=== PATIENT | female | born 1935 | race Hispanic/Latino ===

== ENCOUNTER → 2016-09-22 | Outpatient (CLI) | payer OTHER ==
[~2016-09-22] VITALS: Ht 149.9 cm; Wt 77.7 kg
[~2016-09-22] MED LIST: ALPRAZOLAM0.5 MG PO; ALPRAZOLAM1 MG PO; AMLODIPINE BES2.5 MG PO; AMLODIPINE BESYL5 MG PO; AMOXICILLIN500 MG PO; ARICEPT10 MG PO; ARICEPT5 MG PO; AVENTYL,PAMELOR10 MG PO; BUDEPRION SR100 MG PO; BUPROPION HCL100 MG PO; CARBIDOPA/LEVO1 EACH PO; CELEXA20 MG PO; CITRACAL + D PO; CITRACAL D + H1 EACH PO; CITRACAL SOFT1 EACH PO; CITRACAL W/V1 TABLE1 PO; CITRACAL200 MG PO; CLARITIN10 M3 PO; ENDOCET 5-3251 EACH PO; FENTANYL1 EAC4 TD; FORTAMET500 M1 PO; GLUCOPHAGE XR,500 MG PO; GLUCOPHAGE500 MG PO; GLUCOSA-CHOND-1 EACH PO; GLUCOSAMINE &1 EACH PO; GLUCOSAMINE PO; GLUCOSAMINE1000 MG PO; Glucophage PO; HYDROCODON-ACE1 EAC5 PO; HYDROCODON-ACE1 EAC8 PO; LANOXIN,DIGI0.125 MG PO; LIDOCAINE700 MG TD; LISINOPRIL10 MG PO; LOPRESSOR25 MG PO; LORATADINE10 M2 PO; LORTAB 7.5/51 TABLET PO; LYRICA75 MG PO; METFORMIN HCL500 M1 PO; METOCLOPRAMIDE H5 MG PO; METOCLOPRAMIDE10 MG PO; MORPHINE SULFAT15 M1 PO; MYCOSTATIN 100,60 ML PO; MYSOLINE50 MG PO; Motrin PO; Move Free Advanced T PO; NABUMETONE500 MG PO; NORTRIPTYLINE H10 MG PO; NORVASC2.5 MG PO; NORVASC5 MG PO; OMEPRAZOLE40 M1 PO; ONE A DAY VITAMIN PO; ONE DAILY FOR1 EAC1 PO; ONE-A-DAY PO; PERCOCET 7.51 TABLET PO; PRAVASTATIN; PRIMIDONE50 MG PO; PRINIVIL10 MG PO; RANITIDINE HCL150 M1 PO; RESTASIS 01 DROP/0.4 BOTH EYES; ROXICODONE5 MG PO; SINEMET 25-1001 EACH PO; TENORMIN25 MG PO; TIZANIDINE HCL2 M1 PO; TYLENOL REGULA325 MG PO; VITAMIN D-32000 UNI2 PO; VITAMIN D2000 UNIT PO; VITAMIN D31000 UNI2 PO; VITAMIN D32000 UNI1 PO; WOMENS MULTIPL1 EACH PO; Wellbutrin PO; XANAX1 MG PO; ZANAFLEX2 M1 PO; ZANAFLEX2 MG PO; Zantac PO; celeXA PO
[2016-09-22 08:22] VITALS: BP 134/63
== END | disposition home or self-care (01) ==
LOC: IVINF 09-01 15:00
DX: M81.0 Age-related osteoporosis without current pathological fracture (principal)
CPT/HCPCS: 96365; J3489

== ENCOUNTER 2016-11-18 07:30 | Day surgery (SDC) | payer OTHER ==
[~2016-11-18] VITALS: Ht 124.5 cm; Wt 77.1 kg
[~2016-11-18 07:30] MED LIST changes: +BENEFIBER152 GM PO; +PROBIOTIC1 EAC1 PO; +ZYRTEC10 M3 PO
[2016-11-18 08:05] LABS: POINT-OF-CARE METER ID UU14174212
== END 2016-11-18 09:00 | disposition home or self-care (01) ==
LOC: PAIN 07:30 → SDC 08:00 → PAIN 09:00
PROVIDERS: Anesthesiology Pain Medicine
DX: M47.26 Other spondylosis with radiculopathy, lumbar region (principal); M47.27 Other spondylosis with radiculopathy, lumbosacral region; F41.9 Anxiety disorder, unspecified; M48.06 Spinal stenosis, lumbar region; M79.1 Myalgia; M17.9 Osteoarthritis of knee, unspecified; I10 Essential (primary) hypertension; E11.9 Type 2 diabetes mellitus without complications; Z85.118 Personal history of other malignant neoplasm of bronchus and lung; R53.82 Chronic fatigue, unspecified; Z96.653 Presence of artificial knee joint, bilateral; Z79.84 Long term (current) use of oral hypoglycemic drugs; Z88.8 Allergy status to other drugs, medicaments and biological substances
CPT/HCPCS: 82948; J1030; J3010; S0020

== ENCOUNTER → 2017-01-17 | Outpatient (CLI) | payer MEDICARE, OTHER | END | disposition home or self-care (01) | LOC: CDC 08:55 | DX: D17.9 Benign lipomatous neoplasm, unspecified (principal); D17.79 Benign lipomatous neoplasm of other sites | CPT/HCPCS: 93000 ==

== ENCOUNTER 2017-01-25 07:40 | Day surgery (SDC) | payer OTHER ==
[~2017-01-25] VITALS: Ht 149.9 cm; Wt 77.6 kg
[~2017-01-25 07:40] MED LIST changes: +MOVANTIK12.5 MG PO
[2017-01-25 08:25] LABS: POINT-OF-CARE METER ID UU14174212
== END 2017-01-25 10:00 | disposition home or self-care (01) ==
LOC: PAIN 07:40 → SDC 08:00 → PAIN 10:00
PROVIDERS: Anesthesiology Pain Medicine
DX: M51.16 Intervertebral disc disorders with radiculopathy, lumbar region (principal); M47.16 Other spondylosis with myelopathy, lumbar region; M50.10 Cervical disc disorder with radiculopathy, unspecified cervical region; M62.838 Other muscle spasm; M48.02 Spinal stenosis, cervical region; M81.0 Age-related osteoporosis without current pathological fracture; I10 Essential (primary) hypertension; M79.1 Myalgia; G25.0 Essential tremor; E11.42 Type 2 diabetes mellitus with diabetic polyneuropathy; K21.9 Gastro-esophageal reflux disease without esophagitis; E78.00 Pure hypercholesterolemia, unspecified; E66.3 Overweight; Z68.35 Body mass index [BMI] 35.0-35.9, adult; E55.9 Vitamin D deficiency, unspecified; Z79.84 Long term (current) use of oral hypoglycemic drugs; Z79.891 Long term (current) use of opiate analgesic; Z79.899 Other long term (current) drug therapy
CPT/HCPCS: 82948; J1030; J3010; S0020

== ENCOUNTER → 2017-02-03 | Outpatient (CLI) | payer OTHER | END | disposition home or self-care (01) | DX: R13.10 Dysphagia, unspecified (principal) | CPT/HCPCS: 92611 GN; G8996 GN; G8997 GN; G8998 GN ==

== ENCOUNTER 2017-02-17 07:43 | Day surgery (SDC) | payer OTHER ==
[~2017-02-17] VITALS: Ht 149.9 cm; Wt 77.1 kg
[2017-02-17 08:22] VITALS: BP 131/61
[2017-02-17 08:26] LABS: EOSINOPHIL (%) 4.2 % (0-5); EOSINOPHIL COUNT 0.3 K/uL (0-0.3); HEMATOCRIT 39.2 % (36.0-46.0); IMMATURE GRANULOCYTE (%) 0.4 % (0.0-0.7); INSTRUMENT ABS NEUTROPHIL CT 4.5 K/uL; LYMPHOCYTE COUNT 2.3 K/uL (1.0-2.8); MCH 27.1 PG (29.0-34.0); MCHC 31.9 G/DL (30.0-36.0); MCV 84.8 FL (83-99); MEAN PLAT.VOLUME 9.9 uM^3 (9.5-12.4); MONOCYTE (%) 8.9 % (3-12); MONOCYTE COUNT 0.7 K/uL (0-0.8); NEUTROPHIL (%) 56.8 % (45-76); NEUTROPHIL COUNT 4.5 K/uL (1.8-6.4); PLATELET COUNT 252 K/uL (156-360); RBC DIS.WIDTH-CV 15.9 % (11.8-14.6); RBC DIS.WIDTH-SD 49.2 % (39-53); RED BLOOD COUNT 4.62 M/uL (3.80-5.20)
[2017-02-17 08:36] LABS: PROTHROMBIN TIME 9.8 (9.2-11.2)
[2017-02-17 08:44] LABS: ANION GAP 7 MEQ/L (2-14); CHLORIDE 107 MEQ/L (99-109); SAMPLE HEMOLYSIS CHECK 0; SAMPLE ICTERIC CHECK 0; SAMPLE LIPEMIA CHECK 0; SODIUM 141 MEQ/L (136-147); TOTAL BILIRUBIN 0.4 MG/DL (0.0-1.0)
[2017-02-17 08:50] LABS: ALKALINE PHOSPHATASE 69 IU/L (3-129); GFR ESTIMATE (CALCULATED) > 59 mL/min/; GLUCOSE 108 mg/dL (70-99); UREA NITROGEN (BUN) 16 mg/dL (9-23)
[2017-02-17 11:02] LABS: POINT-OF-CARE METER ID UU13113675
[2017-02-17] MEDS ORDERED: HYDROCODON-ACE1 EAC7 PO (11:33)
[2017-02-17] MEDS ORDERED: COLACE100 MG PO (11:33)
[2017-02-17 12:00] VITALS: BP 117/58
[2017-02-17 12:45] VITALS: BP 124/51
[2017-02-17 13:37] VITALS: BP 114/63
== END 2017-02-17 13:45 | disposition home or self-care (01) ==
LOC: SDC 07:43
PROVIDERS: Thoracic Surgery (Cardiothoracic Vascular Surgery)
DX: D17.1 Benign lipomatous neoplasm of skin and subcutaneous tissue of trunk (principal); E11.9 Type 2 diabetes mellitus without complications; Z85.118 Personal history of other malignant neoplasm of bronchus and lung; I10 Essential (primary) hypertension; E06.3 Autoimmune thyroiditis; G20 Parkinson's disease; Z82.49 Family history of ischemic heart disease and other diseases of the circulatory system
CPT/HCPCS: 80053; 82948; 85025; 85610; 88304; J0690

== ENCOUNTER 2017-04-18 11:48 | Day surgery (SDC) | payer OTHER ==
[~2017-04-18] VITALS: Ht 149.9 cm; Wt 78.5 kg
[~2017-04-18 11:48] MED LIST changes: +COLACE100 MG PO; +FLONASE16 G1 BOTH NARES; +HYDROCODON-ACE1 EAC7 PO; +MOVANTIK25 MG PO
[2017-04-18 12:17] LABS: POINT-OF-CARE METER ID UU13113694
== END 2017-04-18 13:52 | disposition home or self-care (01) ==
LOC: PAIN 11:48
PROVIDERS: Anesthesiology Pain Medicine
PROC: 015B3ZZ Destruction of Lumbar Nerve, Percutaneous Approach (ICD-10-PCS; principal; 2017-04-18)
DX: M47.26 Other spondylosis with radiculopathy, lumbar region (principal); M51.16 Intervertebral disc disorders with radiculopathy, lumbar region; M51.36 Other intervertebral disc degeneration, lumbar region; F41.9 Anxiety disorder, unspecified; M62.838 Other muscle spasm; M48.06 Spinal stenosis, lumbar region; Z85.118 Personal history of other malignant neoplasm of bronchus and lung; K21.9 Gastro-esophageal reflux disease without esophagitis; E11.40 Type 2 diabetes mellitus with diabetic neuropathy, unspecified; R29.6 Repeated falls; I10 Essential (primary) hypertension; E78.5 Hyperlipidemia, unspecified; M81.0 Age-related osteoporosis without current pathological fracture; G20 Parkinson's disease; Z96.659 Presence of unspecified artificial knee joint; Z88.8 Allergy status to other drugs, medicaments and biological substances
CPT/HCPCS: 82948; J1030; J3010; S0020

== ENCOUNTER 2017-04-25 08:54 | Day surgery (SDC) | payer OTHER ==
[~2017-04-25] VITALS: Ht 149.9 cm; Wt 78.5 kg
[2017-04-25 09:28] LABS: POINT-OF-CARE METER ID UU13113694
== END 2017-04-25 10:35 | disposition home or self-care (01) ==
LOC: PAIN 08:54 → SDC 09:30 → PAIN 09:30
PROVIDERS: Anesthesiology Pain Medicine
PROC: 015B3ZZ Destruction of Lumbar Nerve, Percutaneous Approach (ICD-10-PCS; principal; 2017-04-25)
DX: M47.26 Other spondylosis with radiculopathy, lumbar region (principal); F41.9 Anxiety disorder, unspecified; E11.40 Type 2 diabetes mellitus with diabetic neuropathy, unspecified; K21.9 Gastro-esophageal reflux disease without esophagitis; Z85.118 Personal history of other malignant neoplasm of bronchus and lung; I10 Essential (primary) hypertension; Z79.891 Long term (current) use of opiate analgesic; Z96.653 Presence of artificial knee joint, bilateral
CPT/HCPCS: 82948; J1030; J2250; J3010; S0020

== ENCOUNTER → 2018-03-09 | Outpatient (CLI) | payer OTHER ==
[~2018-03-09] VITALS: Ht 149.9 cm; Wt 79.0 kg
[~2018-03-09] MED LIST changes: +BISOPROLOL FUMA10 MG PO; +MEGA BENFOTIAMINE PO; +OMEGA XL
== END | disposition home or self-care (01) ==
LOC: IVINF 02-22 15:00
DX: M81.0 Age-related osteoporosis without current pathological fracture (principal); Z87.19 Personal history of other diseases of the digestive system
CPT/HCPCS: 96367; J3489